=== PATIENT | female | born 1965 | race Caucasian/White ===

== ENCOUNTER 2018-04-22 09:00 | Inpatient (IN) | payer MEDICAID ==
[~2018-04-22] VITALS: Ht 149.9 cm; Wt 79.4 kg
--- NOTE | ~2018-04-22 | CON ---
[address] [address] CONSULTATION Name: JAGRUTIMARICARMEN J Room: [address] M.R.#: [id number] Admission: 04/22/18 Attend Phys: Maxx Estrada MD Discharge: 04/24/18 Date of : 63 Report #: [id number] THIS REPORT FOR: //name// CC: ALEJANDRINA Estrada Physician staff CONSULTATION: Infectious diseases. HISTORY OF PRESENT ILLNESS: The patient is a 53-year-old white female who comes to [facility] with cellulitis due to a dog bite. She was trying to save her elderly, small dog from the heavy forger helper of a large Rottweiler. While trying to pull her dog away, her dog nipped at the patient's right thumb drawing blood. Within 24 hours, the thumb and thenar eminence were red, warm, tender with streaks going up the arm. The patient presented to the ER and was admitted. She was started on cefazolin, then changed to Unasyn. Infectious disease consultation was requested. The patient's dog was an indoor dog, but it has never had "his shot." The ER initiated rabies protocol as well as give a tetanus booster in spite of the fact that the patient said she had one 2 years ago. In the hospital, the patient has noted marked improvement in the symptoms in 36 hours and is now anxious to be discharged. PAST MEDICAL HISTORY: Significant for diabetes, hypertension, COPD, myocardial infarction, TIAs, anxiety and depression. PAST SURGICAL HISTORY: Includes cholecystectomy, tubal ligation and neck surgery. ALLERGIES: The patient has no drug allergies. FAMILY HISTORY: Noncontributory. SOCIAL HISTORY: The patient is single. She lives in [place], [place] and was in [place] visiting her son. She hopes to return to [place] in the next day or so. She did smoke cigarettes, but quit about a year ago. No history of alcohol or drugs. The patient is disabled by her medical problems. REVIEW OF SYSTEMS GENERAL: The patient denies fevers, chills, sweats, weakness, malaise. ENT: The patient denies headache, sinus congestion, sore throat, trouble swallowing. CHEST: The patient denies cough, chest pain, shortness of breath. She denies angina, syncope, palpitation. ABDOMEN: The patient denies nausea, vomiting, diarrhea, constipation, abdominal pain. The patient denies any [place] [address] CONSULTATION Name: MARICARMEN CHAND Room: [address]#: [id number] Admission: 04/22/18 Attend Phys: Maxx Estrada MD Discharge: 04/24/18 Date of : 63 Report #: [id number] EXTREMITIES: The patient denies any pain in the extremities except for the right hand associated with the injury. She notes this is also markedly improved since coming to the hospital. PHYSICAL EXAMINATION: GENERAL: The patient appears alert, oriented, comfortable, not in any distress. VITAL SIGNS: Normal. The patient has been afebrile throughout this hospitalization. SKIN: Shows minimal erythema and swelling on the right thumb. The patient had photos on her cell phone of the hand prior to coming in the hospital, and one can clearly see 90% resolution in the redness and warmth. Wounds are fairly trivial. The patient has excellent motion at the wrist. No lymphadenopathy in the right upper extremity. There is still some decrease in heavy forger helper strength due to pain and swelling. Other extremities are normal. Hand has excellent pulses and capillary refill. ENT: Negative. HEART: Sounds normal. LUNGS: Clear. ABDOMEN: Belly soft, not tender. LABORATORY DATA: White count is 9000, hemoglobin 12.9. Electrolytes normal. BUN 27, creatinine has gone from 2.2-1.8, glucose was 561 on admission. The patient admits that while at her son, she observed no dietary restrictions, and they had lots of desserts. She says her fingerstick sugars are normally in the 100-200 range. IMPRESSION: Cellulitis from dog bite, responding very nicely to Unasyn. The patient does not look sick that require further hospitalization. She has only been in the hospital for a little over a day. I think it may be prudent to give her 1 more dose of Rocephin for 24 hours of parenteral therapy. Her IVs have already blown and was not replaced. I can give Rocephin 2 g intramuscular with lidocaine, with continued antibiotics with oral Augmentin 500 p.o. t.i.d. I gave the patient prescription and discussed the use of probiotics. I did discuss with the patient the need for ongoing smoking abstinence while fighting infection as well as glycemic control. The patient will leave the hospital tonight and I understand plans to drive back to [place] on Wednesday. I appreciate the opportunity to work with you in the care of this pleasant patient. If there is further infection problems after tomorrow, Dr. Chang will be available. By: [id number] Vaughan MD /nt
[~2018-04-22 09:00] MED LIST: ALBUTEROL2.5 MG/3 M IH; AMITRIPTYLINE H10 M3 PO; ASPIRIN EC81 M1 PO; CHOLESTEROL MED; CYMBALTA30 MG PO; CYMBALTA60 MG PO; GLUCOTROL5 MG PO; GLYBURIDE 5 MG T5 M1 PO; HYDROCODON-ACE1 EAC7 PO; IBUPROFEN 600600 M1 PO; ISOSORBIDE DINIT; LANTUS100 UNIT/M SUBQ; LIDODERM 5%1 PATC1 TRANSDERM; LIORESAL 10 MG10 MG PO; LYRICA 75 MG CA75 MG PO; MEDROLDOSEPACK PO; NAPROSYN500 MG PO; NEURONTIN 300300 M1 PO; NORCO 10-325 T1 EACH PO; NORCO 5-325 TA1 EACH PO; NOVOLOG100 UNIT/1 SUBQ; OSELB75 PO; PAXIL10 MG PO; PREDNISONE 20 M20 M1 PO; PREDNISONE50 MG PO; REQUIP 1 MG TABL1 M1 PO; REQUIP5 MG PO; RESTLESS LEG MED; SOMA250 MG PO; TENORMIN100 MG PO; TORADOL 10 MG T10 MG PO; VENTOLIN HFA 1818 GM; VENTOLIN HFA 1818 GM INH; VITAMIN D400 UNI1 PO; ZANAFLEX4 MG PO; ZANTAC 150MG T150 M1 PO; ZOCOR20 MG PO; ZPAK PO
[2018-04-22 09:10] VITALS: BP 148/96
[2018-04-22 10:00] LABS: ABSOLUTE BASOPHILS 0.1 thou/uL (0.0-0.2); ABSOLUTE EOSINOPHILS 0.1 thou/uL (0.0-0.7); ABSOLUTE LYMPHOCYTES 3.1 thou/uL (0.8-5.3); ABSOLUTE MONOCYTES 0.5 thou/uL (0.0-1.2); ABSOLUTE NEUTROPHILS 5.3 thou/uL (1.6-8.1); EOSINOPHILS 1.5 %; HEMOGLOBIN 12.9 gm/dL (12.0-15.0); LYMPHOCYTES 33.7 %; MCH 28.9 pg (26.0-34.0); MCHC 33.8 g/dL (28.0-37.0); MCV 85.4 fL (80.0-100.0); MONOCYTES 5.6 %; MPV 8.5 fl. (7.2-11.1); NUCLEATED RBCS 0 /100WBC; PLATELET COUNT* 198 thou/uL (150-400); POLYS 58.2 %; RBC 4.45 mil/uL (4.20-5.00); RDW-CV 12.3 % (10.5-14.5); WBC 9.1 thou/uL (4.0-11.0)
[2018-04-22 10:22] LABS: CALCIUM 8.7 mg/dL (8.5-10.1); CREATININE 2.2 mg/dL (0.6-1.3); POTASSIUM 4.8 mmol/L (3.5-5.1)
[2018-04-22 10:26] LABS: TOTAL BILIRUBIN 0.4 mg/dL (<0.1-1.0); TOTAL PROTEIN 6.9 g/dL (6.4-8.2)
[2018-04-22 11:29] LABS: ESR (SEDRATE) 36 mm/hr (0-30)
[2018-04-22 14:54] VITALS: BP 139/75
[2018-04-22 14:57] LABS: URINE BILIRUBIN NEGATIVE (Negative); URINE BLOOD NEGATIVE (Negative); URINE CLARITY CLEAR; URINE COLOR YELLOW; URINE GLUCOSE-RANDOM 1+ (Negative); URINE KETONES NEGATIVE (Negative); URINE LEUKOCYTES NEGATIVE (Negative); URINE NITRITE NEGATIVE (Negative); URINE PROTEIN 2+ (Negative); URINE SPECIFIC GRAVITY >= 1.030 (1.005-1.030); URINE UROBILINOGEN 0.2 E.U./dl (0.2-1.0)
[2018-04-22 15:00] VITALS: BP 122/66
[2018-04-22 15:05] LABS: SQUAMOUS 4-10 Moderate /LPF (0-3)
[2018-04-22 15:06] LABS: BACTERIA None Seen /HPF (None Seen); CASTS None Seen /LPF (None Seen); CRYSTALS None Seen /LPF (None Seen); MUCUS 0-3 Light strn/LPF (None Seen); URINE RBC None Seen /HPF (0-2); URINE WBC None Seen /HPF (0-5)
[2018-04-22] MEDS ORDERED: METFORMIN HCL500 MG PO (17:08)
[2018-04-22] MEDS ORDERED: OXYBUTYNIN 5 MG5 M2 PO (17:09)
[2018-04-22] MEDS ORDERED: ROSUVASTATIN CA10 MG PO (17:09)
[2018-04-22] MEDS ORDERED: LANTUS100 UNIT/M SUBQ (17:10)
[2018-04-22] MEDS ORDERED: SYMBICORT160 MCG/4. INH (17:12)
[2018-04-22] MEDS ORDERED: MUCINEX600 MG PO (17:13)
[2018-04-22 19:07] LABS: GLYCOHEMOGLOBIN (HGB A1C) 13.3 % (4.8-5.6)
[2018-04-22 20:50] VITALS: BP 135/86
[2018-04-23 04:35] LABS: ABSOLUTE EOSINOPHILS 0.2 thou/uL (0.0-0.7); ABSOLUTE LYMPHOCYTES 3.1 thou/uL (0.8-5.3); ABSOLUTE MONOCYTES 0.4 thou/uL (0.0-1.2); ABSOLUTE NEUTROPHILS 4.1 thou/uL (1.6-8.1); BASOPHILS 0.4 %; EOSINOPHILS 2.6 %; HEMATOCRIT 35.3 % (37.0-47.0); HEMOGLOBIN 12.2 gm/dL (12.0-15.0); LYMPHOCYTES 39.8 %; MCH 29.2 pg (26.0-34.0); MCHC 34.4 g/dL (28.0-37.0); MCV 85.1 fL (80.0-100.0); MPV 8.9 fl. (7.2-11.1); NUCLEATED RBCS 0 /100WBC; PLATELET COUNT* 187 thou/uL (150-400); POLYS 52.2 %; RBC 4.15 mil/uL (4.20-5.00); RDW-CV 12.5 % (10.5-14.5); WBC 7.9 thou/uL (4.0-11.0)
[2018-04-23 05:17] LABS: CALCIUM 8.7 mg/dL (8.5-10.1); CREATININE 1.8 mg/dL (0.6-1.3); POTASSIUM 4.3 mmol/L (3.5-5.1)
[2018-04-23 08:05] VITALS: BP 145/83
[2018-04-23 16:00] VITALS: BP 131/87
[2018-04-23 20:49] VITALS: BP 132/83
[2018-04-24 01:15] VITALS: BP 162/73
[2018-04-24 07:30] VITALS: BP 144/101
[2018-04-24 14:29] VITALS: BP 144/101
[2018-04-24] MEDS ORDERED: AUGMENTIN 500-1 EACH PO (17:54)
== END 2018-04-24 18:30 | disposition home or self-care (01) | DRG 605 ==
LOC: M.ERS 09:00 → M.TBA-ER 09:56 → M.3W 15:02
PROVIDERS: Emergency Medicine Emergency Medical Services; ADMIT Internal Medicine
DX: S61.051A Open bite of right thumb without damage to nail, initial encounter (principal); N18.4 Chronic kidney disease, stage 4 (severe); R65.10 Systemic inflammatory response syndrome (SIRS) of non-infectious origin without acute organ dysfunction; N17.9 Acute kidney failure, unspecified; L03.011 Cellulitis of right finger; J44.9 Chronic obstructive pulmonary disease, unspecified; E11.22 Type 2 diabetes mellitus with diabetic chronic kidney disease; I12.9 Hypertensive chronic kidney disease with stage 1 through stage 4 chronic kidney disease, or unspecified chronic kidney disease; E78.00 Pure hypercholesterolemia, unspecified; F32.9 Major depressive disorder, single episode, unspecified; F41.9 Anxiety disorder, unspecified; M65.841 Other synovitis and tenosynovitis, right hand; E11.65 Type 2 diabetes mellitus with hyperglycemia; G89.29 Other chronic pain; Z23 Encounter for immunization; I25.2 Old myocardial infarction; Z86.73 Personal history of transient ischemic attack (TIA), and cerebral infarction without residual deficits; Z87.891 Personal history of nicotine dependence; Z90.49 Acquired absence of other specified parts of digestive tract; Z79.4 Long term (current) use of insulin; Z79.82 Long term (current) use of aspirin; Z79.899 Other long term (current) drug therapy; Z88.8 Allergy status to other drugs, medicaments and biological substances; Z91.012 Allergy to eggs; W54.0XXA Bitten by dog, initial encounter; Y93.89 Activity, other specified; Y92.89 Other specified places as the place of occurrence of the external cause; Y99.8 Other external cause status

== ENCOUNTER 2020-03-29 12:36 | Emergency (ER) | payer OTHER, MEDICAID ==
[~2020-03-29] VITALS: Ht 149.9 cm; Wt 74.8 kg
[~2020-03-29 12:36] MED LIST changes: +AUGMENTIN 500-1 EACH PO; +METFORMIN HCL500 MG PO; +MUCINEX600 MG PO; +OXYBUTYNIN 5 MG5 M2 PO; +ROSUVASTATIN CA10 MG PO; +SYMBICORT160 MCG/4. INH
[2020-03-29] MEDS ORDERED: LANTUS SUBQ (12:47)
[2020-03-29] MEDS ORDERED: NORCO 5-325 TA1 EAC2 PO (13:34)
--- NOTE | 2020-03-29 14:54 | EKG ---
[place] [address] ELECTROCARDIOGRAM REPORT Name: MARICARMEN CHAND Room: [facility]#: [id number] Admission: 03/29/20 Attend Phys: Discharge: Date of : 63 Date of Service: 03/29/20 1248 Report #: [id number] THIS REPORT FOR: //name// [facility] ED Test Date: 2020-03-29 Test Time: 12:48:38 Pat Name: MARICARMEN CHAND Department: Room: Gender: Application Security Consultant: [place] : 1965 Requested By: Luis Levine Order Number: [id number] MD: Tico Curry Measurements Intervals [place] Rate: 85 P: 47 CO: 180 QRS: -18 QRSD: 95 T: 46 QT: 376 QTc: 447 Interpretive Statements Sinus rhythm Ventricular premature complex Borderline left axis deviation Anterior infarct, old Baseline wander in lead(s) I Compared to ECG 07/01/2015 01:49:04 No significant changes Electronically Signed On 03-29-2020 14:53:50 PATTERN FINISHER by Tico Curry [email or web address] <ELECTRONICALLY SIGNED> By: Tico Curry MD, FACC 03/29/20 1453 1248 1248 Tico Curry MD, FAC /EPI
[2020-03-29 15:00] VITALS: BP 148/86
== END 2020-03-29 15:00 | disposition home or self-care (01) ==
LOC: M.ERS 12:36
DX: S01.111A Laceration without foreign body of right eyelid and periocular area, initial encounter (principal); J45.909 Unspecified asthma, uncomplicated; I13.10 Hypertensive heart and chronic kidney disease without heart failure, with stage 1 through stage 4 chronic kidney disease, or unspecified chronic kidney disease; E11.22 Type 2 diabetes mellitus with diabetic chronic kidney disease; N18.4 Chronic kidney disease, stage 4 (severe); E78.00 Pure hypercholesterolemia, unspecified; G89.29 Other chronic pain; Z90.49 Acquired absence of other specified parts of digestive tract; Z98.51 Tubal ligation status; Z87.891 Personal history of nicotine dependence; Z86.73 Personal history of transient ischemic attack (TIA), and cerebral infarction without residual deficits; Z79.4 Long term (current) use of insulin; Z91.012 Allergy to eggs; Z91.011 Allergy to milk products; W22.8XXA Striking against or struck by other objects, initial encounter; Y93.89 Activity, other specified; Y92.89 Other specified places as the place of occurrence of the external cause; Y99.8 Other external cause status

== ENCOUNTER 2020-04-08 17:34 | Emergency (ER) | payer OTHER, MEDICAID ==
[~2020-04-08] VITALS: Ht 149.9 cm; Wt 74.8 kg
[~2020-04-08 17:34] MED LIST changes: +LANTUS SUBQ; +NORCO 5-325 TA1 EAC2 PO
[2020-04-08 17:54] VITALS: BP 174/101
[2020-04-08] MEDS ORDERED: NORCO 5-325 TA1 EAC2 PO (18:38)
== END 2020-04-08 18:48 | disposition home or self-care (01) ==
LOC: M.ERS 17:34
DX: S40.021A Contusion of right upper arm, initial encounter (principal); S01.111D Laceration without foreign body of right eyelid and periocular area, subsequent encounter; J45.909 Unspecified asthma, uncomplicated; E78.00 Pure hypercholesterolemia, unspecified; Z90.49 Acquired absence of other specified parts of digestive tract; Z98.51 Tubal ligation status; I25.2 Old myocardial infarction; N18.4 Chronic kidney disease, stage 4 (severe); I12.9 Hypertensive chronic kidney disease with stage 1 through stage 4 chronic kidney disease, or unspecified chronic kidney disease; E11.22 Type 2 diabetes mellitus with diabetic chronic kidney disease; Z86.73 Personal history of transient ischemic attack (TIA), and cerebral infarction without residual deficits; Z79.899 Other long term (current) drug therapy; Z79.4 Long term (current) use of insulin; Z87.891 Personal history of nicotine dependence; Z91.011 Allergy to milk products; Z91.012 Allergy to eggs; V89.2XXA Person injured in unspecified motor-vehicle accident, traffic, initial encounter; Y93.89 Activity, other specified; Y92.89 Other specified places as the place of occurrence of the external cause; Y99.8 Other external cause status

== ENCOUNTER 2021-06-13 22:11 | Emergency (ER) | payer MEDICAID ==
[~2021-06-13] VITALS: Ht 149.9 cm; Wt 70.3 kg
[2021-06-13 23:31] LABS: INFLUENZA A ANTIGEN Negative (Negative); INFLUENZA B ANTIGEN Negative (Negative)
[2021-06-13 23:52] LABS: ABSOLUTE LYMPHOCYTES 4.1 thou/uL (0.8-5.3); ABSOLUTE MONOCYTES 0.6 thou/uL (0.0-1.2); BASOPHILS 0.3 %; EOSINOPHILS 0.1 %; HEMATOCRIT 34.4 % (37.0-47.0); HEMOGLOBIN 11.5 gm/dL (12.0-15.0); MCH 27.5 pg (26.0-34.0); MCHC 33.4 g/dL (28.0-37.0); MCV 82.3 fL (80.0-100.0); MONOCYTES 4.8 %; MPV 8.3 fl. (7.2-11.1); NUCLEATED RBCS 0 /100WBC; PLATELET COUNT* 207 thou/uL (150-400); POLYS 62.8 %; RBC 4.18 mil/uL (4.20-5.00); RDW-CV 13.3 % (10.5-14.5); WBC 12.7 thou/uL (4.0-11.0)
[2021-06-14 00:01] LABS: CALCIUM 8.3 mg/dL (8.5-10.1); CREATININE 2.1 mg/dL (0.6-1.3); POTASSIUM 4.3 mmol/L (3.5-5.1)
[2021-06-14 00:07] LABS: ALBUMIN 3.2 g/dL (3.4-5.0); TOTAL BILIRUBIN 0.6 mg/dL (<0.1-1.0); TOTAL PROTEIN 6.8 g/dL (6.4-8.2)
[2021-06-14] MEDS ORDERED: ZOFRAN ODT4 MG PO (02:28)
[2021-06-14] MEDS ORDERED: PREDNISONE 20 M20 M1 PO (02:28)
[2021-06-14] MEDS ORDERED: AMOX TR-K CLV1 EAC4 PO (02:28)
[2021-06-14 02:44] VITALS: BP 103/67
--- NOTE | 2021-06-14 10:36 | EKG ---
[place] [address] ELECTROCARDIOGRAM REPORT Name: MARICARMEN CHAND Room: [facility]#: [id number] Admission: 06/13/21 Attend Phys: Discharge: 06/14/21 Date of : 63 Date of Service: 06/13/212229 Report #: [id number] THIS REPORT FOR: //name// [facility] ED Test Date: 2021-06-13 Test Time: 22:30:17 Pat Name: MARICARMEN CHAND Department: Room: Gender: Manager Managed Care: : 1965 Requested By: Zoe Paiz Order Number: [id number] MD: Tico Curry Measurements Intervals [place] Rate: 85 P: 63 SD: 183 QRS: 32 QRSD: 92 T: 37 QT: 378 QTc: 450 Interpretive Statements Sinus rhythm low voltage Anterior infarct, old Compared to ECG 03/29/2020 12:48:38 Ventricular premature complex(es) no longer present Myocardial infarct finding still present Electronically Signed On 06-14-2021 10:36:04 TRANSPLANT SURGEON by Tico Curry [email or web address] <ELECTRONICALLY SIGNED> By: Tico Curry MD, FAC 06/14/21 1036 2230 29 Tico Curry MD, [facility] /EPI
== END 2021-06-14 02:44 | disposition home or self-care (01) ==
LOC: M.ERS 22:11
PROVIDERS: Emergency Medicine
DX: J45.901 Unspecified asthma with (acute) exacerbation (principal); Z20.822 Contact with and (suspected) exposure to COVID-19; E11.65 Type 2 diabetes mellitus with hyperglycemia; E87.1 Hypo-osmolality and hyponatremia; I12.9 Hypertensive chronic kidney disease with stage 1 through stage 4 chronic kidney disease, or unspecified chronic kidney disease; N18.4 Chronic kidney disease, stage 4 (severe); E78.00 Pure hypercholesterolemia, unspecified; F41.9 Anxiety disorder, unspecified; I25.2 Old myocardial infarction; Z90.49 Acquired absence of other specified parts of digestive tract; Z98.890 Other specified postprocedural states; Z98.51 Tubal ligation status; Z79.51 Long term (current) use of inhaled steroids; Z79.82 Long term (current) use of aspirin; Z79.4 Long term (current) use of insulin; Z79.899 Other long term (current) drug therapy; Z88.5 Allergy status to narcotic agent; Z91.012 Allergy to eggs; Z91.011 Allergy to milk products; Z87.891 Personal history of nicotine dependence